=== PATIENT | female | born 1945 | race Caucasian/White ===

== ENCOUNTER 2018-04-01 17:01 | Emergency (ER) | payer OTHER ==
[~2018-04-01] VITALS: Ht 144.8 cm; Wt 109.1 kg
[2018-04-01 18:13] LABS: HEMATOCRIT 31.3 % (36.0-46.0); HEMOGLOBIN 10.6 G/DL (11.9-15.5); MCH 33.9 PG (29.0-34.0); MCHC 33.9 G/DL (30.0-36.0); PLATELET COUNT 262 K/uL (156-360); RBC DIS.WIDTH-CV 13.2 % (11.8-14.6); RBC DIS.WIDTH-SD 48.5 % (39-53); RED BLOOD COUNT 3.13 M/uL (3.80-5.20); WHITE BLOOD COUNT 7.1 K/uL (4.1-10.2)
[2018-04-01 18:37] LABS: ALBUMIN 3.9 g/dL (3.2-4.8); CHLORIDE 104 mEq/L (99-109); POTASSIUM 3.8 mEq/L (3.7-5.4); SODIUM 139 mEq/L (136-147)
[2018-04-01 18:39] LABS: GLUCOSE 120 mg/dL (70-99); TOTAL PROTEIN 7.6 g/dL (6.4-8.3)
[2018-04-01 18:41] LABS: TOTAL BILIRUBIN 0.5 mg/dL (0.0-1.0)
[2018-04-01 18:43] LABS: ALKALINE PHOSPHATASE 124 IU/L (3-129); CREATININE 0.7 mg/dL (0.6-1.3); GFR ESTIMATE (CALCULATED) > 59 mL/min/
[2018-04-01 18:44] LABS: UREA NITROGEN (BUN) 11 mg/dL (9-23)
[2018-04-01 18:45] LABS: AST (GOT) 28 IU/L (2-34)
[2018-04-01 18:46] LABS: ALT (GPT) 21 IU/L (3-49)
[2018-04-01 20:50] LABS: URIC ACID 4.7 mg/dL (3.1-9.2)
[2018-04-01] MEDS ORDERED: KEFLEX500 MG PO (21:26)
[2018-04-01 21:52] VITALS: BP 138/66
== END 2018-04-01 21:56 | disposition home or self-care (01) ==
LOC: RME 17:01 → EME 17:01 → RME 21:56
PROVIDERS: Physician Assistant
DX: L03.113 Cellulitis of right upper limb (principal); E11.9 Type 2 diabetes mellitus without complications; M10.9 Gout, unspecified; Z85.118 Personal history of other malignant neoplasm of bronchus and lung; Z88.0 Allergy status to penicillin; Z87.891 Personal history of nicotine dependence
CPT/HCPCS: 73130; 80053; 83605; 84550; 85027; 87040; 99281; 99285; J0696; J7030